=== PATIENT | male | born 1985 | race Caucasian/White ===

== ENCOUNTER 2020-05-02 18:21 | Emergency (ER) | payer OTHER, SELFPAY ==
[2020-05-02 18:57] VITALS: BP 140/80; PULSE 79; RESP 18; TEMP 36.4; O2SAT 98; BMI 34.5
--- NOTE | 2020-05-02 19:18 | PC.NURSE ---
Labs obtained. given water and spec cup for urine. RM 13 unavailable. at side. placed in waiting area and will remain with patient. Pt active [employer]. 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 Flat affect and not speaking much. states he was inpatient at [facility] a few months ago after a SI attempt with a firearm. Pt's plan was to shoot himself. Pts was able to remove firearms from home. Unable to establish follow up care. states they keep changing his appointments and he has been unable to start any medications. He is agreeable to medications and treatment. States he has Depression and Social Anxiety Disorder.
[2020-05-02 19:57] LABS: Add Manual Diff / Slide Review NO; Basophils Absolute Auto 0 /uL (0-100); Basophils Percent Auto 0.5 % (0-2); Eosinophils Absolute Auto 100 /uL (0-450); Eosinophils Percent Auto 1.9 % (2-4); Hematocrit 44.2 % (41-53); Hemoglobin 15.7 g/dL (13.5-17.5); Lymphocytes Absolute Auto 1800 /uL (1100-4500); Lymphocytes Percent Auto 25.2 % (25-40); Mean Corpuscular HGB Conc 35.4 % (30-36); Mean Corpuscular Hemoglobin 30.9 PG (26-34); Mean Corpuscular Volume 87.1 fL (80-100); Monocytes Absolute Auto 500 /uL (0-900); Monocytes Percent Auto 6.5 % (3-14); Neutrophils Absolute Auto 4800 /uL (1500-7000); Neutrophils Percent Auto 65.9 % (50-75); Platelet Count 178 X10^3/uL (150-400); Red Blood Cell Count 5.07 X10^6/uL (4.5-5.9); Red Cell Distribution Width 12.7 % (11.6-14.8); White Blood Cell Count 7.3 X10^3/uL (4.5-11.0)
[2020-05-02 20:17] LABS: Acetaminophen < 10 ug/mL (10-30); Alanine Aminotransferase 55 IU/L (<50); Albumin 4.3 g/dL (3.5-5.0); Albumin Globulin Ratio 1.4 (1.0-2.8); Alkaline Phosphatase 46 U/L (38-126); Aspartate Aminotransferase 65 IU/L (17-59); BUN Creatinine Ratio 13.5 (6-22); Bilirubin Total 0.3 mg/dL (0.2-1.3); Blood Urea Nitrogen 18 mg/dL (9-20); Carbon Dioxide 30 mmol/L (22-32); Chloride 103 mmol/L (98-107); Estimated Glomerular Filt Rate > 60.0 mL/min (>60); Ethanol (ETOH) < 10 mg/dL; Glucose 81 mg/dL (70-100); HEMOLYSIS 34 (0-50); Potassium 4.3 mmol/L (3.4-5.1); Salicylate < 1.0 mg/dL (<20); Sodium 140 mmol/L (137-145); Total Protein 7.3 g/dL (6.3-8.2)
[2020-05-02 20:31] LABS: Free T4, Direct Thyroxine 1.04 ng/dL (0.78-2.19)
[2020-05-02 20:45] LABS: Thyroid Stimulating Hormone 1.52 uIU/mL (0.47-4.68)
[2020-05-02 23:38] LABS: Bacteria Urine None Seen; RBC Urine None Seen (0-5/HPF); WBC Urine None Seen (0-5/HPF)
[2020-05-02 23:47] LABS: Appearance Urine UA CLEAR; Bilirubin Urine UA NEGATIVE (NEGATIVE); Color Urine UA YELLOW; Glucose Urine UA NEGATIVE (Negative); Ketones Urine UA NEGATIVE (NEGATIVE); Leukocyte Esterase Urine UA NEGATIVE (NEGATIVE); Nitrite Urine UA NEGATIVE (Negative); Occult Blood Urine UA NEGATIVE (Negative); Protein Urine UA NEGATIVE (Negative); Specific Gravity Urine UA 1.025 (1.000-1.035); Urobilinogen Urine UA 0.2 E.U./dL (0.2)
[2020-05-02 23:53] LABS: UR Morphine/Opiate cutoff 300 Negative (Negative); Ur Creatinine 20 (Normal); Ur Specific Gravity 1.025 (Normal); Urine Amphetamines Negative (Negative); Urine Barbiturates Negative (Negative); Urine Benzodiazepines Negative (Negative); Urine Cocaine Negative (Negative); Urine MDMA Negative (Negative); Urine Methadone Negative (Negative); Urine Methamphetamines Negative (Negative); Urine Oxycodone Negative (Negative); Urine Phencyclidine Negative (Negative); Urine Tetrahydrocannabinol Negative (Negative); Urine Tricyclic Antidepressant Negative (Negative); Urine pH 6 (Normal)
[2020-05-03 00:11] LABS: Culture Indicated Urine Cult Not Indicated
--- NOTE | 2020-05-03 01:02 | PC.NURSE ---
HOSPITAL PRODUCT SPECIALIST note: patient in chair, wheeling around space in a wheely chair. in room with patient.
--- NOTE | 2020-05-03 01:36 | PC.NURSE ---
electrophysiology technologist note patient came up to the door, said I'm debating if I want to leave because I've been here for 8 hours already. Told him I would go talk to the doctor and nurses.
--- NOTE | 2020-05-03 03:06 | ED.PSYCH ---
HPI - Psych General Chief Complaint: Psychiatric Symptoms Stated Complaint: Depressed/Suicidal Thoughts Time Seen by Provider: 05/03/20 00:05 History of Present Illness HPI Narrative: 34-year-old otherwise healthy active [place] gentleman presents with suicidal ideation and depression. He states that he has had a lifetime history of the being terrified of what others think about him with severe sometimes completely disabling anxiety and panic attacks. He notes that his grandmother was diagnosed with bipolar disease in his mother was diagnosed with major depressive disorder. He himself has no formal diagnosis and has been trying to access mental health treatment through the [facility] and has been having difficulty in following with appointments. With COVID appointments have been limited and change frequently. He finally does have a therapist appointment scheduled for April 28 after multiple rescheduling. He states that exercise is his main stress reliever. His is quite supportive and it is because of his that he actually is in the emergency room this evening. He states he has never been on psychiatric medications or had a psychiatric inpatient stay. Last month he did have a suicidal incident. He took the gun out and was considering killing himself this happened while his was present and she was able to convince him to put the gun down and has since removed guns completely from their home and any access for him. He does state that he continues to think about suicidal options including jumping off a bridge or a clip however he would not do this because he could not see leaving his family. He states that he is angry all of the time but not having any homicidal ideation. He finds that he can have episodes where he simply stares into space and thinks about nothing in a avoidance techniques rather than any type of self calming way. He finds that he typically is fatigued enough from his exercise routine and physical job that he is able to sleep with minimal difficulty. He does have a CPAP machine and occasionally uses melatonin. He does not complain of racing thoughts, hypomanic symptoms or any psychotic features. Related Data Previous Rx's Medication Instructions Recorded citalopram 20 mg PO DAILY #30 tab 05/03/20 lorazepam [Ativan] 1 mg PO TID PRN #30 tab 05/03/20 Review of Systems Review of Systems Narrative: Pertinent positive and negative findings as per HPI Remainder of review of systems is otherwise unremarkable for Constitutional: Fevers, chills, weakness ENT: No sore throat, neck pain, ear pain CV: Chest pain, palpitations, dyspnea on exertion Respiratory: Cough, wheeze, dyspnea GI: Nausea, vomiting, diarrhea, : Dysuria, hematuria, flank pain MS: Muscle weakness, numbness, joint swelling or warmth Skin: Rashes, nonhealing lesions Neuro: Syncope, dizziness, tingling Patient History Medical History (Updated 05/03/20 @ 07:56 by Lila Gan MD) Depression Exam Narrative Exam Narrative: General: Healthy appearing, in no acute distress. Flat affect but Able to give a complete and coherent history. Well-nourished well-developed Respiratory: Lungs are clear to auscultation, no wheezing no rales no rhonchi. Full and symmetrical air movement Cardiac: Regular rate and rhythm no murmurs no bruits Abdomen: Soft, nontender, good bowel tones, no flank pain Skin: Warm and dry, no rashes Neurologic: Grossly neurologically intact with no obvious asymmetries or abnormalities Extremities: No trauma, well perfused Psych: Cooperative, appropriate insight, fluent nonpressured speech Initial Vital Signs Initial Vital Signs: Vital Signs Temperature 97.6 F 05/02/20 18:57 Pulse Rate 79 05/02/20 18:57 Respiratory Rate 18 05/02/20 18:57 Blood Pressure 140/80 05/02/20 18:57 Pulse Oximetry 98 05/02/20 18:57 Course Orders Ordered: ED Orders 05/02/20 23:32 Urinalysis and Microscopic Stat Urine Drug Screen, Rapid Stat Discontinued Medications Lorazepam (Lorazepam 0.5 Mg Tablet) 1 mg PO NOW ONE Stop: 05/03/20 03:08 Last Admin: 05/03/20 03:25 Dose: 1 mg Documented by: ETELVINA Lorazepam (Lorazepam 0.5 Mg Tablet) 0.5 mg PO NOW ONE Stop: 05/03/20 03:23 Vital Signs Vital signs: Vital Signs - 8 hr 05/03/20 03:25 Temperature 97.9 F Pulse Rate 69 Respiratory Rate 18 Blood Pressure 137/79 Pulse Oximetry 96 [facility] - Psych Medical Records Attestation: I reviewed the patient's medical records. Lab Data Attestation: I reviewed the patient's lab results. Result diagrams: 05/02/20 19:13 05/02/20 19:13 Labs: Lab Results 05/02/20 05/02/20 05/02/20 Range/Units 19:13 19:13 19:13 WBC 7.3 (4.5-11.0) X10^3/uL RBC 5.07 (4.5-5.9) X10^6/uL Hgb 15.7 (13.5-17.5) g/dL Hct 44.2 (41-53) % MCV 87.1 (80-100) fL MCH 30.9 (26-34) PG MCHC 35.4 (30-36) % RDW 12.7 (11.6-14.8) % Plt Count 178 (150-400) X10^3/uL Neut % (Auto) 65.9 (50-75) % Lymph % (Auto) 25.2 (25-40) % Independence % (Auto) 6.5 (3-14) % Eos % (Auto) 1.9 L (2-4) % Baso % (Auto) 0.5 (0-2) % Neut # (Auto) 4800 (2422-3004) /uL Lymph # (Auto) 1800 (9586-7838) /uL Independence # (Auto) 500 (0-900) /uL Eos # (Auto) 100 (0-450) /uL Baso # (Auto) 0 (0-100) /uL Sodium 140 (137-145) mmol/L Potassium 4.3 (3.4-5.1) mmol/L Chloride 103 (98-107) mmol/L Carbon Dioxide 30 (22-32) mmol/L BUN 18 (9-20) mg/dL Creatinine 1.33 H (0.66-1.25) mg/dL Estimated GFR > 60.0 (>60) mL/min BUN/Creatinine Ratio 13.5 (6-22) Glucose 81 (70-100) mg/dL Calcium 9.0 (8.4-10.2) mg/dL Total Bilirubin 0.3 (0.2-1.3) mg/dL AST 65 H (17-59) IU/L ALT 55 H (<50) IU/L Alkaline Phosphatase 46 (38-126) U/L Total Protein 7.3 (6.3-8.2) g/dL Albumin 4.3 (3.5-5.0) g/dL Globulin 3.0 (1.7-4.1) g/dL Albumin/Globulin Ratio 1.4 (1.0-2.8) TSH 1.52 (0.47-4.68) uIU/mL Free T4 1.04 (0.78-2.19) ng/dL Urine Color Urine Appearance Urine pH (4.5-8.0) Ur Specific Reading (1.000-1.035) Urine Protein (Negative) Urine Glucose (UA) (Negative) g/dL Urine Ketones (NEGATIVE) Urine Occult Blood (Negative) Urine Nitrate (Negative) Urine Bilirubin (NEGATIVE) Urine Urobilinogen (0.2) E.U./dL Ur Leukocyte Esterase (NEGATIVE) Urine RBC (0-5/HPF) Urine WBC (0-5/HPF) Urine Bacteria (None) Ur Culture Indicated? Salicylates < 1.0 (<20) mg/dL U Opiates 300ng/mL cut (Negative) Ur Oxycodone Screen (Negative) Urine Methadone Screen (Negative) Acetaminophen < 10 L (10-30) ug/mL Ur Barbiturates Screen (Negative) U Tricyclic Antidepress (Negative) Ur Phencyclidine Scrn (Negative) Ur Amphetamines Screen (Negative) U Methamphetamines Scrn (Negative) Ur MDMA Scrn (Ecstasy) (Negative) U Benzodiazepines Scrn (Negative) Urine Cocaine Screen (Negative) U Marijuana (THC) Screen (Negative) Ethyl Alcohol < 10 ( - 10) mg/dL 05/02/20 05/02/20 Range/Units 23:32 23:32 WBC (4.5-11.0) X10^3/uL RBC (4.5-5.9) X10^6/uL Hgb (13.5-17.5) g/dL Hct (41-53) % MCV (80-100) fL MCH (26-34) PG MCHC (30-36) % RDW (11.6-14.8) % Plt Count (150-400) X10^3/uL Neut % (Auto) (50-75) % Lymph % (Auto) (25-40) % Independence % (Auto) (3-14) % Eos % (Auto) (2-4) % Baso % (Auto) (0-2) % Neut # (Auto) (3308-8339) /uL Lymph # (Auto) (5694-2442) /uL Independence # (Auto) (0-900) /uL Eos # (Auto) (0-450) /uL Baso # (Auto) (0-100) /uL Sodium (137-145) mmol/L Potassium (3.4-5.1) mmol/L Chloride (98-107) mmol/L Carbon Dioxide (22-32) mmol/L BUN (9-20) mg/dL Creatinine (0.66-1.25) mg/dL Estimated GFR (>60) mL/min BUN/Creatinine Ratio (6-22) Glucose (70-100) mg/dL Calcium (8.4-10.2) mg/dL Total Bilirubin (0.2-1.3) mg/dL AST (17-59) IU/L ALT (<50) IU/L Alkaline Phosphatase (38-126) U/L Total Protein (6.3-8.2) g/dL Albumin (3.5-5.0) g/dL Globulin (1.7-4.1) g/dL Albumin/Globulin Ratio (1.0-2.8) TSH (0.47-4.68) uIU/mL Free T4 (0.78-2.19) ng/dL Urine Color Yellow Urine Appearance Clear Urine pH 6.0 (4.5-8.0) Ur Specific Reading 1.025 (1.000-1.035) Urine Protein Negative (Negative) Urine Glucose (UA) Negative (Negative) g/dL Urine Ketones Negative (NEGATIVE) Urine Occult Blood Negative (Negative) Urine Nitrate Negative (Negative) Urine Bilirubin Negative (NEGATIVE) Urine Urobilinogen 0.2 (0.2) E.U./dL Ur Leukocyte Esterase Negative (NEGATIVE) Urine RBC None seen (0-5/HPF) Urine WBC None seen (0-5/HPF) Urine Bacteria None seen (None) Ur Culture Indicated? Cult not indicated Salicylates (<20) mg/dL U Opiates 300ng/mL cut Negative (Negative) Ur Oxycodone Screen Negative (Negative) Urine Methadone Screen Negative (Negative) Acetaminophen (10-30) ug/mL Ur Barbiturates Screen Negative (Negative) U Tricyclic Antidepress Negative (Negative) Ur Phencyclidine Scrn Negative (Negative) Ur Amphetamines Screen Negative (Negative) U Methamphetamines Scrn Negative (Negative) Ur MDMA Scrn (Ecstasy) Negative (Negative) U Benzodiazepines Scrn Negative (Negative) Urine Cocaine Screen Negative (Negative) U Marijuana (THC) Screen Negative (Negative) Ethyl Alcohol ( - 10) mg/dL Urine Dip Bedside Urine Glucose 100 mg/dl Bedside Urine Ketone - Negative Urine Specific Reading 1.030 Bedside Urine Occult Blood - Negative Bedside Urine pH 6.0 Bedside Urine Protein - Negative Bedside Urine Urobilinogen - Negative Bedside Urine Nitrite - Negative Bedside Urine Leukocytes - Negative Esterase MDM Narrative Medical decision making narrative: 34-year-old gentleman with a history of anxiety and depression increasing frustration with trying to access care through the [place] and not being able to do so. Suicide gesture/attempt approximately 1 month ago and currently contracts for safety with both me and his . He states that he would not hurt himself because he would not want to hurt his family. He is very interested in trying medications and therapy. He is not interested in inpatient care at this time and very much wants to continue his career in the . We had a long discussion regarding medication options and follow-up. Opted to begin an SSRI, citalopram at 20 mg a day with anticipated response including minimal effects with the 1st week. Opted to use bridging Ativan in the 1st 2 weeks of SSRI treatment to help with his increased anxiety. He has an appointment scheduled with a therapist in 5 days and feels that he will be able to get in to see his primary care physician to discuss medication management and discuss actual diagnosis and possibility of actual psychiatric referral. Patient and were both very pleased with this plan both felt that it was safe. She will be driving home tonight and he has proven repeatedly that he trusts her and has turned her prior to hurting himself in the past. She is comfortable with this plan as well. Patient is safe for home discharge at this time. Discharge Plan Departure Patient Disposition: Home Clinical Impression: Acute anxiety Depression Qualifiers: Depression Type: unspecified Qualified Code(s): F32.9 - Major depressive disorder, single episode, unspecified Instructions: DI for Depression -- Adult, DI for Suicidal Ideation-Adult Activity Restrictions/Additional Instructions: Thank you for coming in tonight It sounds like your attempts to seek care have been very frustrating. Please start the celexa/citalopram 20mg tomorrow. This is an antidepressant. It can take a couple of weeks to really feel the difference, so please be patient do continue to take the medication. Please schedule an appointment with your primary care physician to follow-up on how this seems to be working and to continue refills. In the 1st 1-2 weeks of taking this medication if your anxiety continues to be a problem, please use half to a whole Ativan/lorazepam tablet to help control anxiety. Consider this a short-term bridge to help with anxiety while the antidepressant is truly beginning to work. Please make sure you keep your counseling appointment as scheduled for May 08 You have told both me and your that you will not try to hurt yourself will we are beginning these medications If you find that things are getting worse, please return to the emergency department Prescriptions: New lorazepam [Ativan] 1 mg tablet 1 mg PO TID PRN (Reason: anxiety) Qty: 30 RF: 0 citalopram 20 mg tablet 20 mg PO DAILY Qty: 30 RF: 1
[2020-05-03 03:25] VITALS: BP 137/79; PULSE 69; RESP 18; TEMP 36.6; O2SAT 96
[2020-05-03] MEDS: LORazepam 0.5 MG TABLET 1 MG PO (03:25)
== END 2020-05-03 03:39 | disposition home or self-care (01) ==
PROVIDERS: Emergency Provider Emergency Medicine
DX: F41.9 Anxiety disorder, unspecified (principal); F32.9 Major depressive disorder, single episode, unspecified
CPT/HCPCS: 36415; 80053; 80305; 80320; 80329; 81001; 81003; 84439; 84443; 85025; 99284; G0480